=== PATIENT | male | born 1950 | race Caucasian/White ===

== ENCOUNTER → 2018-09-02 | Outpatient (CLI) | payer MEDICARE, BC ==
[2018-09-02 11:47] LABS: HCT 43.5 % (39.0-53.0); HGB 13.9 gm/dL (13.0-17.5); MCH 28.9 pg (25.0-35.0); MCHC 31.9 g/dL (31.0-37.0); MCV 90.5 fL (80.0-100.0); Mean Platelet Volume 9.7; Platelet Count 189 k/uL (150-450); RBC 4.81 m/uL (4.30-5.90); RDW 15.4 % (11.5-15.5); WBC 4.2 k/uL (3.8-10.6)
[2018-09-02 11:56] LABS: Potassium 4.7 mmol/L (3.5-5.1)
== END | disposition home or self-care (01) ==
LOC: LABPAT 11:19
PROVIDERS: ATTEND Internal Medicine Cardiovascular Disease
DX: Z01.812 Encounter for preprocedural laboratory examination (principal); R00.2 Palpitations; R07.9 Chest pain, unspecified
CPT/HCPCS: 36415; 80051; 82565; 82947; 84520; 85027

== ENCOUNTER 2018-09-08 08:00 | Day surgery (SDC) | payer MEDICARE, BC ==
[2018-09-01 11:44] VITALS: BMI 31.0
[2018-09-08] MEDS ORDERED: ATORVASTATIN 80 MG TAB PO STA (08:13)
[2018-09-08] MEDS ORDERED: NITROGLYCERIN SL TABS 0.4 MG TAB SUBLINGUAL PRN (08:13)
[2018-09-08] MEDS ORDERED: ALPRAZolam 0.25 MG TAB PO PRN (08:13)
[2018-09-08] MEDS ORDERED: SODIUM CHLORIDE 0.9% 1,000 ML in EMPTY BAG 1 BAG IV ONE (08:13)
[2018-09-08] MEDS ORDERED: ASPIRIN 325 MG TAB PO STA (08:13)
[2018-09-08] MEDS ORDERED: ALPRAZolam 0.5 MG TAB PO PRN (08:13)
[2018-09-08 08:37] VITALS: TEMP 97.8
[2018-09-08] MEDS ORDERED: VERAPAMIL 2.5 MG/ML 2 ML AMP ONE (08:41)
[2018-09-08] MEDS ORDERED: HEPARIN SODIUM 1,000 UN/ML (10ML VL) ONE (08:41)
[2018-09-08] MEDS ORDERED: fentaNYL (PF) 50 MCG/ML 2 ML AMP ONE (08:47)
[2018-09-08 08:49] LABS: Glucose,Whole Blood 144 mg/dL (75-99)
[2018-09-08] MEDS ORDERED: MIDAZOLAM (PF) 2 MG/2 ML VIAL IV ONE (09:03)
[2018-09-08] MEDS ORDERED: fentaNYL (PF) 50 MCG/ML 2 ML AMP IV ONE (09:03)
[2018-09-08] MEDS ORDERED: LIDOCAINE 2% (PF) 20 MG/ML 5 ML VIAL SQ ONE (09:05)
[2018-09-08] MEDS ORDERED: VERAPAMIL SYRINGE (5 MG/10 ML) INTRAARTER ONE (09:13)
[2018-09-08] MEDS ORDERED: IOPAMIDOL-370 100ML BTL INJ ONE (09:34)
[2018-09-08] MEDS ORDERED: RX INFO: IV CONTRAST WAS GIVEN 1 EACH MISC MISCELLANE PRN (09:43)
[2018-09-08] MEDS ORDERED: SODIUM CHLORIDE 0.9% 1,000 ML IV SCH (09:45)
--- NOTE | 2018-09-08 10:34 | P.CARDCATH ---
Date of Procedure: 09/08/18 Preoperative Diagnosis: Exertional shortness of breath, frequent PVCs and multiple risk factors Postoperative Diagnosis: Normal coronary arteries. Normal left ventricle end-diastolic pressure Procedure(s) Performed: Left heart catheterization without left ventriculography Description of Procedure: HISTORY: This is a 68-year-old gentleman was seen for evaluation of symptoms of exertional shortness of breath. Patient also has a ventricular ectopy. Stress test as an outpatient was normal but patient continued to have symptoms and had multiple risk factors including hypertension, hypercholesterolemia and diabetes. Patient is advised to have a cardiac catheterization for definitive diagnosis CONSENT:I have discussed the risks, benefits and alternative therapies for the above-mentioned procedure and for both sedation/analgesia as well as necessary blood product administration, if indicated, as they pertain to this patient. The patient has indicated understanding and acceptance of the risks and procedures discussed. PROCEDURE: Patient was brought to the lab in a fasting state. Patient was given some IV sedation. The right wrist is infiltrated with lidocaine and right radial artery was entered using Seldinger technique. A 6-[place] catheter was left in place and selective coronary arteriography was performed. Patient tolerated the procedure well. TR band was applied for hemostasis. No immediate complications were noted and patient was transferred to [facility] in a stable condition Conscious Sedation: Versed 1mg Fentanyl 50 g Duration 32minutes HEMODYNAMICS: The aortic pressure is about 140/70. Left ventricular end- diastolic pressure 8-10. There was no gradient across the aortic valve SELECTIVE CORONARY ARTERIOGRAPHY: LEFT MAIN: This is a normal length and free of any occlusive disease THE LEFT ANTERIOR DESCENDING CORONARY ARTERY: . This is a moderate caliber vessel giving rise to good-sized diagonal septal branches. The LAD and its branches are free of any significant occlusive disease THE LEFT CIRCUMFLEX AND IS CORONARY ARTERY: . This is a moderate caliber vessel and codominant. Free of any occlusive disease THE RIGHT CORONARY ARTERY: . This is a dominant vessel giving rise to PDA and PLV. Difficult to engage the ostium. Some of the injections of some selective. However there doesn't seem to be any significant obstructive disease LEFT VENTRICULOGRAPHY: . Not performed FINAL IMPRESSION: , Normal coronary arteries. Normal end-diastolic pressure PLAN: Maximal medical therapy and risk factor modification PROGNOSIS: Fair
[2018-09-08 11:47] LABS: Glucose,Whole Blood 229 mg/dL (75-99)
[2018-09-08] MEDS ORDERED: INSULIN ASPART (NovoLOG) 100 UNIT/ML VIAL SQ ONE (12:00)
[2018-09-08 13:11] VITALS: RESP 16
[2018-09-08 14:07] VITALS: BP 118/72; PULSE 75
== END 2018-09-08 14:08 | disposition home or self-care (01) ==
LOC: CATHCVL 08:00
PROVIDERS: ATTEND Internal Medicine Cardiovascular Disease
DX: I49.3 Ventricular premature depolarization (principal); R07.9 Chest pain, unspecified; E11.9 Type 2 diabetes mellitus without complications; Z79.4 Long term (current) use of insulin; E78.00 Pure hypercholesterolemia, unspecified; Z79.82 Long term (current) use of aspirin; Z79.899 Other long term (current) drug therapy; Z79.890 Hormone replacement therapy; E78.5 Hyperlipidemia, unspecified; Z87.891 Personal history of nicotine dependence
CPT/HCPCS: 93458; C1769; C1894; J3010; J1644; Q9967; J2250; J2001

== ENCOUNTER 2018-09-25 06:52 | Day surgery (SDC) | payer MEDICARE, BC ==
[2018-09-23 12:00] VITALS: BMI 31.0
[~2018-09-25 06:52] MED LIST: LACTATED RINGERS 1,000 ML IV SCH
[2018-09-25] MEDS ORDERED: LACTATED RINGERS 1,000 ML IV ONE (07:08)
[2018-09-25 07:18] VITALS: TEMP 97.3
[2018-09-25 07:23] LABS: Glucose,Whole Blood 115 mg/dL (75-99)
[2018-09-25] MEDS ORDERED: PROPOFOL 10 MG/ML 20 ML VIAL IV ONE (07:40)
--- NOTE | 2018-09-25 07:46 | P.GSHP ---
History of Present Illness H&P Date: 09/25/18 Chief Complaint: History of colon polyps This is a 68-year-old male referred from Dr. Stephanie jurado. Patient presents today for colonoscopy. He is history of colon polyps. His last colonoscopy was 4 years ago. Past Medical History Past Medical History: Cancer, Diabetes Mellitus, GERD/Reflux, GI Bleed, Hyperlipidemia, Liver Disease, Pneumonia, Prostate Disorder Additional Past Medical History / Comment(s): See Dr. Levi H & P, hx kidney stones, SPINAL STENOSIS-causes pain in left arm and rt leg and numbness in left hand, NON ALCOHOLIC FATTY LIVER DISEASE, DIVERTICULOSIS, BASAL CELL cancer, History of Any Multi-Drug Resistant Organisms: None Reported Past Surgical History: Cholecystectomy, Heart Catheterization Additional Past Surgical History / Comment(s): skin cancer removed from back of neck and side of face, heart cath 09/08/18 Past Anesthesia/Blood Transfusion Reactions: Previous Problems w/ Anesthesia Additional Past Anesthesia/Blood Transfusion Reaction / Comment(s): "takes a lot to put me down with colonoscopies", had night terrors for 1 week after first c olonoscopy Past Psychological History: No Psychological Hx Reported Smoking Status: Former smoker Past Alcohol Use History: None Reported Additional Past Alcohol Use History / Comment(s): QUIT SMOKING 22 yrs ago, smoked since age 19, 1 1/2 PPD Past Drug Use History: None Reported - Past Family History Father Family Medical History: Cancer Mother Family Medical History: Cancer Additional Family Medical History / Comment(s): colon Brother(s) Family Medical History: Cancer Additional Family Medical History / Comment(s): ONE BROTHER WITH CANCER IN EAR. ANOTHER BROTHER WITH BLADDER CANCER Medications and Allergies Home Medications Medication Instructions Recorded Confirmed Type Aspirin EC [Ecotrin] 325 mg PO DAILY 12/27/15 09/25/18 History Atorvastatin [Lipitor] 80 mg PO MOWEFR 12/27/15 09/25/18 History Cholecalciferol [Vitamin D3] 4,000 unit PO DAILY 12/27/15 09/25/18 History Cyanocobalamin [Vitamin B-12] 1,000 mcg PO DAILY 12/27/15 09/25/18 History Finasteride [Proscar] 5 mg PO DAILY 12/27/15 09/25/18 History Glucosamine Sulfate 1,500 mg PO DAILY 12/27/15 09/25/18 History Levothyroxine Sodium [Synthroid] 50 mcg PO DAILY 12/27/15 09/25/18 History Lisinopril [Zestril] 5 mg PO DAILY 12/27/15 09/25/18 History Milk Thistle 1,000 mg PO DAILY 12/27/15 09/25/18 History Omeprazole 20 mg PO DAILY 12/27/15 09/25/18 History Turmeric Root Extract [Turmeric] 500 mg PO DAILY 12/27/15 09/25/18 History metFORMIN HCL 1,000 mg PO BID 12/27/15 09/25/18 History Cyclobenzaprine [Flexeril] 5 mg PO BID 09/01/18 09/25/18 History Fenofibrate Nanocrystallized 145 mg PO DAILY 09/01/18 09/25/18 History [Tricor] Folic Acid 1 mg PO DAILY 09/01/18 09/25/18 History Insulin Aspart [Novolog Flexpen] 36 unit SQ W/LUNCH 09/01/18 09/23/18 History Insulin Degludec [Tresiba 46 units SQ HS 09/01/18 09/25/18 History Flextouch U-200] Magnesium Oxide [Mag-Ox] 250 mg PO DAILY 09/01/18 09/25/18 History Metoprolol Tartrate 25 mg PO BID 09/01/18 09/23/18 History Montelukast Sodium [Singulair] 10 mg PO HS 09/01/18 09/25/18 History Psyllium Husk [Metamucil] 1.2 gm PO HS 09/01/18 09/25/18 History Ubidecarenone [Co Q-10] 100 mg PO DAILY 09/01/18 09/25/18 History Metoprolol Tartrate [Lopressor] 25 mg PO BID #60 tablet 09/08/18 09/25/18 Rx Ibuprofen 200 - 600 mg PO HS PRN MDD P 09/23/18 09/23/18 History Insulin Aspart [NovoLOG Flexpen] 0 units SQ QID PRN 09/23/18 09/23/18 History Insulin Aspart [NovoLOG Flexpen] 32 units SQ BID-W/MEALS 09/23/18 09/23/18 History Allergies Allergy/AdvReac Type Severity Reaction Status Date / Time No Known Allergies Allergy Verified 09/25/18 07:19 Surgical - Exam Vital Signs Temp Pulse Resp BP Pulse Ox 97.3 F L 88 14 129/70 95 09/25/18 07:16 09/25/18 07:16 09/25/18 07:16 09/25/18 07:16 09/25/18 07:16 - General well developed, well nourished, no distress - Eyes PERRL - ENT normal pinna - Neck no masses - Respiratory normal expansion - Cardiovascular Rhythm: regular - Abdomen Abdomen: soft, non tender Results - Labs Abnormal Lab Results - Last 24 Hours (Table) 09/25/18 Range/Units 07:20 POC Glucose (mg/dL) 115 H (75-99) mg/dL Assessment and Plan Assessment: History of colon polyps. We'll perform colonoscopy.
--- NOTE | 2018-09-25 08:03 | P.OP ---
Date of Procedure: 09/25/18 Preoperative Diagnosis: History of colon polyps Postoperative Diagnosis: Rectal and sigmoid colon polyps External hemorrhoids Procedure(s) Performed: Colonoscopy Anesthesia: MAC Surgeon: Jose Tavarez Pathology: other (Rectal, sigmoid colon polyps) Condition: stable Disposition: PACU Description of Procedure: The patient's placed on the endoscopy table in the lateral position. He received IV sedation. Digital rectal exam was performed which revealed external hemorrhoids. Flexible colonoscope was then placed patient anus and passed throughout the entire colon. The ileocecal valve visualized. The cecum, ascending and transverse colon appeared normal. The descending colon appeared normal. In the sigmoid colon there was a few hyperplastic-appearing polyps. He is removed with the cold forcep. Scope was then brought back to the rectum and more colon polyps seen. There is removed with the cold forcep. The scope was withdrawn through the anus and there is some minimal internal hemorrhoids scope was then withdrawn for patient.
[2018-09-25 08:08] VITALS: RESP 16
[2018-09-25 08:21] LABS: Glucose,Whole Blood 126 mg/dL (75-99)
[2018-09-25 08:31] VITALS: BP 111/74; PULSE 70
== END 2018-09-25 08:59 | disposition home or self-care (01) ==
LOC: ORWHC2ENDO 06:52
PROVIDERS: ATTEND Surgery
DX: Z12.11 Encounter for screening for malignant neoplasm of colon (principal); K63.5 Polyp of colon; K62.1 Rectal polyp; K64.4 Residual hemorrhoidal skin tags; E11.9 Type 2 diabetes mellitus without complications; K21.9 Gastro-esophageal reflux disease without esophagitis; E78.5 Hyperlipidemia, unspecified; I10 Essential (primary) hypertension; E07.9 Disorder of thyroid, unspecified; Z87.01 Personal history of pneumonia (recurrent); Z86.010 Personal history of colon polyps; Z85.828 Personal history of other malignant neoplasm of skin; Z87.891 Personal history of nicotine dependence; Z79.82 Long term (current) use of aspirin; Z79.890 Hormone replacement therapy; Z79.4 Long term (current) use of insulin; Z79.899 Other long term (current) drug therapy; Z87.442 Personal history of urinary calculi; Z86.19 Personal history of other infectious and parasitic diseases; Z79.1 Long term (current) use of non-steroidal anti-inflammatories (NSAID)
CPT/HCPCS: 88305; 45380; J2704

== ENCOUNTER → 2019-09-01 | Outpatient (CLI) | payer MEDICARE, BC ==
--- NOTE | 2019-09-02 08:15 | CT ---
EXAMINATION TYPE: CT chest abdomen w con DATE OF EXAM: 09/01/2019 COMPARISON: Chest x-ray 12/27/2015 HISTORY: Right upper quadrant abdominal and chest pain. CT DLP: 1651.8 mGycm. Automated Exposure Control for Dose Reduction was Utilized. CONTRAST: CT scan of the thorax, abdomen and pelvis is performed with IV Contrast, patient injected with 100ml mL of Isovue 300. FINDINGS: LUNGS: The lungs are grossly clear, there is no concerning parenchymal mass or nodule identified. T here is no pleural effusion or pneumothorax seen. The tracheobronchial tree is patent. MEDIASTINUM: There are no greater than 1 cm hilar or mediastinal lymph nodes. No pericardial effusi on is seen. OTHER: No additional significant abnormality is seen. LIVER/GB: The liver is enlarged and shows low-attenuation likely due to hepatic steatosis, gallbladde r is absent. PANCREAS: No significant abnormality is seen. SPLEEN: No significant abnormality is seen. ADRENALS: No significant abnormality is seen. KIDNEYS: No significant abnormality is seen. BOWEL: No significant abnormality is seen. GENITAL ORGANS: Not included LYMPH NODES: No retroperitoneal adenopathy OSSEOUS STRUCTURES: Multilevel spondylosis is noted in the thoracic and lumbar spine. OTHER: No signi ficant additional abnormality is seen. IMPRESSION: Hepatomegaly, hepatic steatosis. Postop changes. Thoracolumbar spondylosis.
== END | disposition home or self-care (01) ==
LOC: RADCTMAIN 17:48
PROVIDERS: ATTEND Family Medicine
DX: R16.0 Hepatomegaly, not elsewhere classified (principal); K76.0 Fatty (change of) liver, not elsewhere classified; Z98.890 Other specified postprocedural states; M47.895 Other spondylosis, thoracolumbar region; J44.9 Chronic obstructive pulmonary disease, unspecified; R10.9 Unspecified abdominal pain
CPT/HCPCS: 82565; 84520; 71260; 74160; 36415; Q9967

== ENCOUNTER → 2021-12-22 | Outpatient (CLI) | payer MEDICARE ==
--- NOTE | 2021-12-23 22:21 | NM ---
EXAMINATION TYPE: NM stress cardiolite complete DATE OF EXAM: 12/22/2021 COMPARISON: Chest CT September 01, 2019 HISTORY: Chest pain, palpitations, and arrhythmia. History of hypertension, hypercholesterolemia and diabetes. TECHNIQUE: After the intravenous administration of 10 mCi Tc 99m Sestamibi - Rest images obtained 50 minutes post injection. The patient exercised using a ETHEL protocol and 1 minute prior to peak ex ercise was injected with 24.9 mCi Tc 99m Sestamibi - Stress images obtained 10 minutes post injection . FINDINGS: Targeted heart rate was achieved during performance of the study. Review of stress and rest SPECT jessica ges demonstrates no distinct perfusion abnormality. Gated analysis shows normal wall motion with an estimated left ventricular ejection fraction of 68 %. IMPRESSION: No scintigraphic evidence for reversible ischemia
== END | disposition home or self-care (01) ==
LOC: RADNMMAIN 08:13
PROVIDERS: ATTEND Family Medicine
DX: R07.89 Other chest pain (principal); R00.2 Palpitations; I49.9 Cardiac arrhythmia, unspecified
CPT/HCPCS: 93017; 78452; A9500